=== PATIENT | male | born 1940 | race Caucasian/White ===

== ENCOUNTER 2017-11-20 09:19 | Day surgery (SDC) ==
[2017-11-20] MEDS ORDERED: LIDOCAINE 1%/PHENYLEPHRINE 1.5% BSS (SURGERY) INTRAOCULA ONE (09:59)
[2017-11-20] MEDS ORDERED: ZOFRAN 4 MG/2 ML IVP ONE (09:59)
[2017-11-20] MEDS ORDERED: NIRAVAM ODT (SURGERY) PO PRN (09:59)
[2017-11-20] MEDS ORDERED: BSS WITH EPINEPHRINE OP ONE (09:59)
[2017-11-20] MEDS ORDERED: BRIMONIDINE TARTRATE 0.2% OPTH SOL OP PRN (09:59)
[2017-11-20] MEDS ORDERED: LIDOCAINE 1% 20 ML MDV ID STA (09:59)
[2017-11-20] MEDS ORDERED: DEX-MOXI-KETOR OPTH INJ 1/0.5/0.4 MG/ML IO ONE (09:59)
[2017-11-20] MEDS ORDERED: AK-DILATE 10% OPTH SOL OP PRN (09:59)
[2017-11-20] MEDS: TETRACAINE 0.5% OPTH SOL OP PRN ×2 (10:01→10:34)
[2017-11-20] MEDS: BETADINE OPTH PREP OP PRN ×2 (10:01→10:34)
[2017-11-20] MEDS: CYCLOGYL 2% OPTH OP PRN ×3 (10:02→10:12)
[2017-11-20 10:14] VITALS: BP 196/90; TEMP 98.6
[2017-11-20] MEDS ORDERED: VERSED ONE (10:45)
[2017-11-20] MEDS ORDERED: SUBLIMAZE ONE (10:45)
== END 2017-11-20 11:35 | disposition home or self-care (01) ==
LOC: SURG 09:19
PROVIDERS: ATTEND Ophthalmology
DX: H25.12 Age-related nuclear cataract, left eye (principal)

== ENCOUNTER 2017-12-25 08:03 | Day surgery (SDC) | payer BC, OTHER ==
[2017-12-25] MEDS: TETRACAINE 0.5% UNIT-DOSE OP PRN ×2 (09:03→09:34)
[2017-12-25] MEDS: BETADINE OPTH PREP OP PRN ×2 (09:03→09:36)
[2017-12-25] MEDS: CYCLOGYL 2% OPTH OP PRN ×3 (09:04→09:14)
[2017-12-25] MEDS ORDERED: DEX-MOXI-KETOR OPTH INJ 1/0.5/0.4 MG/ML IO ONE (09:09)
[2017-12-25] MEDS ORDERED: BRIMONIDINE TARTRATE 0.2% OPTH SOL OP PRN (09:09)
[2017-12-25] MEDS ORDERED: LIDOCAINE 1% 20 ML MDV ID STA (09:09)
[2017-12-25] MEDS ORDERED: BSS WITH EPINEPHRINE OP ONE (09:09)
[2017-12-25] MEDS ORDERED: LIDOCAINE 1%/PHENYLEPHRINE 1.5% BSS (SURGERY) INTRAOCULA ONE (09:09)
[2017-12-25] MEDS ORDERED: ZOFRAN 4 MG/2 ML IVP ONE (09:09)
[2017-12-25] MEDS ORDERED: VERSED ONE (09:37)
[2017-12-25] MEDS ORDERED: SUBLIMAZE ONE (09:37)
[2017-12-30 07:34] VITALS: BP 112/57; TEMP 98.7
== END 2017-12-25 10:25 | disposition home or self-care (01) ==
LOC: SURG 08:03
PROVIDERS: ATTEND Ophthalmology
DX: H25.11 Age-related nuclear cataract, right eye (principal)